=== PATIENT | female | born 1985 | race Asian ===

== ENCOUNTER 2019-10-17 12:55 | Inpatient (IN) | payer BC ==
[~2019-10-17] VITALS: Ht 170.2 cm; Wt 77.1 kg
[2019-10-17] MEDS ORDERED: LR 1,000 ML IV ONE (13:56)
[2019-10-17] MEDS ORDERED: CITRIC ACID/SODIUM CITRATE 30 ML UDC PO ONE (14:00)
[2019-10-17] MEDS ORDERED: CEFAZOLIN 2 GM IVPB PREMIX 50 ML IV ONE (14:00)
[2019-10-17] MEDS ORDERED: METOCLOPRAMIDE HCL 10 MG/2 ML VIAL IVP ONE (14:00)
[2019-10-17 14:40] LABS: BASOPHILS % (AUTO) 0.7 % (0.0-2.0); EOSINOPHILS # (AUTO) 0.1 K/uL (0.0-0.4); EOSINOPHILS % (AUTO) 0.9 % (0.0-4.0); HEMATOCRIT 36.2 % (36-48); HEMOGLOBIN 11.8 g/dL (12.0-16.0); LYMPHOCYTES # (AUTO) 1.6 K/uL (1.0-5.5); LYMPHOCYTES % (AUTO) 27.9 % (20.5-51.5); MEAN CORPUSCULAR HEMOGLOBIN 27 pg (27-31); MEAN CORPUSCULAR HGB CONC 33 % (32-36); MEAN CORPUSCULAR VOLUME 82 fL (79.0-98.0); MONOCYTES # (AUTO) 0.6 K/uL (0.0-1.0); MONOCYTES % (AUTO) 10.8 % (1.7-9.3); NEUTROPHILS # (AUTO) 3.3 K/uL (1.8-7.7); NEUTROPHILS % (AUTO) 59.7 % (40.0-70.0); PLATELET COUNT (AUTO) 147 K/uL (130-430); RED BLOOD CELL COUNT(AUTO) 4.44 MIL/uL (4.2-6.2); RED CELL DISTRIBUTION WIDTH 16.4 % (9.0-15.0); WHITE BLOOD COUNT (AUTO) 5.6 K/uL (4.8-10.8)
[2019-10-17 14:47] LABS: BILIRUBIN,URINE NEGATIVE (NEGATIVE); BLOOD, URINE NEGATIVE (NEGATIVE); COLOR,URINE YELLOW (YELLOW); GLUCOSE,URINE NEGATIVE (NEGATIVE); KETONES,URINE NEGATIVE (NEGATIVE); LEUKOCYTE ESTERASE ,URINE 3+ (NEGATIVE); NITRITE, URINE NEGATIVE (NEGATIVE); PROTEIN URINE NEGATIVE (NEGATIVE); UROBILINOGEN,URINE 0.2 (0.2-1.0)
[2019-10-17 14:49] LABS: CLARITY/URINE HAZY (CLEAR)
[2019-10-17 14:54] LABS: BACTERIA,URINE MODERATE /HPF (None Seen); RBC,URINE 0-3 /HPF (0-3); WBC,URINE 20-50 /HPF (0-3)
[2019-10-17 14:55] LABS: MUCUS,URINE 1+ /LPF (None Seen)
[2019-10-17] MEDS ORDERED: LR 1,000 ML IV SCH (16:40)
[2019-10-17] MEDS ORDERED: OXYTOCIN/0.9 % SODIUM CHLORIDE 1,000 ML IV ONE ×2 (16:40→17:11)
[2019-10-17] MEDS ORDERED: OXYCODONE/ACETAMINOPHEN 5-325 TABLET PO PRN (16:45)
[2019-10-17] MEDS ORDERED: SENNOSIDES/DOCUSATE SODIUM 1 TAB TABLET(SENOKOT-S) PO PRN (16:45)
[2019-10-17] MEDS ORDERED: ANUSOL 1 EA SUPP.RECT (PREPARATION H) RC PRN (16:45)
[2019-10-17] MEDS ORDERED: TEMAZEPAM 15 MG CAPSULE PO PRN (16:45)
[2019-10-17] MEDS ORDERED: LANOLIN 7 GM OINT. TP PRN (16:45)
[2019-10-17] MEDS ORDERED: MEASLES,MUMPS&RUBELLA VACC/PF 12500 UNIT/0.5 ML VIAL SUBQ PRN (16:45)
[2019-10-17] MEDS ORDERED: HYDROcodone/ACETAMIN 5-325 MG TAB (NORCO/ VICODIN) PO PRN (16:45)
[2019-10-17] MEDS ORDERED: BISACODYL 10 MG/SUPPOSITORY RC PRN (16:45)
[2019-10-17] MEDS ORDERED: DIPH-TET-PERTUS Vaccine 0.5 ML VIAL (ADACEL) I.M. PRN (16:45)
[2019-10-17 18:56] VITALS: BP_SYST 117
[2019-10-17] MEDS: KETOROLAC TROMETHAMINE 30 MG VIAL IM SCH (23:31)
[2019-10-18] MEDS: KETOROLAC TROMETHAMINE 30 MG VIAL IM SCH ×3 (05:57→17:37)
[2019-10-18 07:42] LABS: BASOPHILS % (AUTO) 0.2 % (0.0-2.0); EOSINOPHILS % (AUTO) 0.1 % (0.0-4.0); HEMATOCRIT 28.9 % (36-48); HEMOGLOBIN 9.5 g/dL (12.0-16.0); LYMPHOCYTES # (AUTO) 2.1 K/uL (1.0-5.5); LYMPHOCYTES % (AUTO) 15.1 % (20.5-51.5); MEAN CORPUSCULAR HEMOGLOBIN 27 pg (27-31); MEAN CORPUSCULAR HGB CONC 33 % (32-36); MEAN CORPUSCULAR VOLUME 82 fL (79.0-98.0); MONOCYTES # (AUTO) 1.1 K/uL (0.0-1.0); NEUTROPHILS # (AUTO) 10.6 K/uL (1.8-7.7); NEUTROPHILS % (AUTO) 76.6 % (40.0-70.0); PLATELET COUNT (AUTO) 138 K/uL (130-430); RED BLOOD CELL COUNT(AUTO) 3.54 MIL/uL (4.2-6.2); WHITE BLOOD COUNT (AUTO) 13.8 K/uL (4.8-10.8)
[2019-10-19] MEDS: OXYCODONE/ACETAMINOPHEN 5-325 TABLET PO PRN (02:52)
[2019-10-19] MEDS: IBUPROFEN 600 MG TABLET PO SCH ×5 (05:57→23:08)
[2019-10-19] MEDS: SIMETHICONE 80 MG TAB.CHEW PO PRN ×3 (12:27→23:07)
[2019-10-19] MEDS: DOCUSATE SODIUM 100 MG CAPSULE PO PRN ×2 (12:28)
[2019-10-20] MEDS: IBUPROFEN 600 MG TABLET PO SCH ×2 (06:58→12:15)
[2019-10-20 07:49] LABS: HEMATOCRIT 27.9 % (36-48); HEMOGLOBIN 9.2 g/dL (12.0-16.0)
[2019-10-20] MEDS: OXYCODONE/ACETAMINOPHEN 5-325 TABLET PO PRN (12:15)
== END 2019-10-20 13:55 | disposition home or self-care (01) | DRG 788 ==
LOC: SPU 12:55
PROVIDERS: ADMIT Obstetrics & Gynecology; ATTEND Obstetrics & Gynecology
PROC: 10D00Z1 Extraction of Products of Conception, Low, Open Approach (ICD-10-PCS; principal; 2019-10-17 15:25)
DX: O34.211 Maternal care for low transverse scar from previous cesarean delivery (principal); Z3A.39 39 weeks gestation of pregnancy; Z37.0 Single live birth; O90.81 Anemia of the puerperium; Z03.818 Encounter for observation for suspected exposure to other biological agents ruled out
CPT/HCPCS: 36415; 81000-TC; 85018-TC; 85025; 86886; 86900; 86901; 87086; 90715; 94760; J0690; J1885; J2590; U0003-CS